=== PATIENT | female | born 1985 | race Caucasian/White ===

== ENCOUNTER 2025-06-13 01:33 | Inpatient (IN) | payer BC, MEDICAID, OTHER ==
[~2025-06-13] VITALS: Ht 162.6 cm; Wt 61.7 kg
[2025-06-13 05:09] LABS: COVID AG,FIA SOURCE NASAL SWAB
[2025-06-13 05:29] LABS: SARS-COV2 (COVID) ANTIGEN,FIA Negative (Negative)
[2025-06-13 05:47] LABS: PLATELET COUNT (AUTO) 215 K/uL (150-450); RED BLOOD CELL COUNT(AUTO) 4.30 MIL/uL (4.00-5.20); RED CELL DISTRIBUTION WIDTH 13.8 % (11.5-14.5); WHITE BLOOD COUNT (AUTO) 8.1 K/uL (4.5-11.0)
[2025-06-13 06:08] LABS: CALCIUM, TOTAL 8.3 mg/dL (8.8-10.5); CREATININE 0.82 mg/dL (0.60-1.30); GLOMERULAR FILTR. RATE CALC > 60 mL/min (>60); GLUCOSE,RANDOM 83 mg/dL (70-110); SODIUM SERUM 138 mmol/L (136-145); UREA NITROGEN, BLOOD 8 mg/dL (7-18)
[2025-06-13 08:43] LABS: APPEARANCE,URINE CLEAR (CLEAR); GLUCOSE, URINE (UA) NEGATIVE (NEGATIVE); LEUKOCYTE ESTERASE ,URINE NEGATIVE (NEGATIVE); NITRATE,URINE NEGATIVE (NEGATIVE); OCCULT BLOOD,URINE SMALL (NEGATIVE); PH,URINE DRUG SCREEN 5.0 (5.0-8.0); SPECIFIC GRAVITIY, URINE 1.028 (1.003-1.030)
[2025-06-13 08:50] LABS: ALCOHOL, URINE DRUG SCREEN NEGATIVE (NEGATIVE); AMPHET/METH SCREEN,URINE NEGATIVE (NEGATIVE); BARBITURATE SCREEN, URINE NEGATIVE (NEGATIVE); CANNABINOID SCREEN,URINE POSITIVE (NEGATIVE); COCAINE SCREEN,URINE NEGATIVE (NEGATIVE); METHADONE SCREEN, URINE NEGATIVE (NEGATIVE)
[2025-06-13] MEDS: ONDANSETRON 4 MG TABLET PO ONE (08:59)
[2025-06-13 09:27] LABS: SQUAMOUS EPITHELIAL CELL,UR Few /LPF (None Seen)
[2025-06-13] MEDS: NICOTINE 21 MG/24 HOUR PATCH TD ONE (16:28)
[2025-06-13] MEDS: ZOLPIDEM TARTRATE 10 MG TABLET PO PRN (21:53)
[2025-06-13 22:57] VITALS: BP 117/79; PULSE 79; RESP 18; TEMP 97.5; O2SAT 98
[2025-06-14 08:35] VITALS: BP 106/80; PULSE 101; RESP 17; TEMP 97.7; O2SAT 99
[2025-06-14] MEDS ORDERED: BACITRACIN 28 GM OINTMENT TP PRN (10:30)
[2025-06-14] MEDS ORDERED: ONDANSETRON 4 MG TABLET PO PRN (10:30)
[2025-06-14] MEDS ORDERED: BENZOCAINE/MENTHOL [CEPACOL] LOZENGE PO PRN (10:30)
[2025-06-14] MEDS ORDERED: LOPERAMIDE HCL 2 MG CAPSULE PO PRN (10:30)
[2025-06-14] MEDS ORDERED: MAG HYDROX/ALUMINUM HYD/SIMETH ES 30 ML SUSPENSION UDCUP PO PRN (10:30)
[2025-06-14] MEDS ORDERED: MAGNESIUM HYDROXIDE SUSPENSION 30 ML UDCUP PO PRN (10:30)
[2025-06-14] MEDS ORDERED: DOCUSATE SODIUM 100 MG CAPSULE PO PRN (10:30)
[2025-06-14] MEDS ORDERED: ALBUTEROL SULFATE HFA 90 MCG/PUFF 8 GM INHALER IH PRN (10:30)
[2025-06-14] MEDS ORDERED: OMEPRAZOLE 20 MG CAPSULE PO PRN (10:30)
[2025-06-14] MEDS ORDERED: PETROLATUM,WHITE 28 GM JELLY TP PRN (10:30)
[2025-06-14 10:52] VITALS: RESP 18; O2SAT 97
[2025-06-14] MEDS: IBUPROFEN 600 MG TABLET PO PRN (10:52)
[2025-06-14] MEDS: NICOTINE POLACRILEX 2 MG LOZENGE PO PRN (10:53)
[2025-06-14 11:52] VITALS: RESP 17
[2025-06-14] MEDS: LORazepam 2 MG/ML VIAL IM ONE (14:20)
[2025-06-14] MEDS: LITHIUM CARBONATE 300 MG CAPSULE PO SCH (17:27)
[2025-06-14] MEDS: DIVALPROEX SODIUM 500 MG DR TABLET PO SCH (17:27)
[2025-06-14 20:26] VITALS: BP 100/77; PULSE 85; RESP 17; TEMP 97.2; O2SAT 100
[2025-06-15 08:34] VITALS: RESP 18
[2025-06-15 10:55] VITALS: BP 125/70; PULSE 100; RESP 17; TEMP 98.6; O2SAT 99
[2025-06-15] MEDS: NICOTINE 14 MG/24 HOUR PATCH TD ONE (14:58)
[2025-06-15 20:12] VITALS: RESP 18; O2SAT 99
[2025-06-15 20:39] VITALS: BP 118/78; PULSE 80; RESP 17; TEMP 97.7; O2SAT 98
[2025-06-15 22:14] VITALS: RESP 18
[2025-06-16] VITALS (8 sets, daily range): BP systolic 106–141; BP diastolic 76–85; PULSE 94–121; RESP 16–17; TEMP 97.9–98.2; O2SAT 96–97
[2025-06-16] MEDS: ACETAMINOPHEN 325 MG TABLET PO PRN (17:02)
[2025-06-16] MEDS: NICOTINE 21 MG/24 HOUR PATCH TD PRN (17:03)
[2025-06-17 09:46] VITALS: BP 90/60; PULSE 114; RESP 18; TEMP 97.4; O2SAT 98
[2025-06-17 10:46] VITALS: RESP 18; O2SAT 98
[2025-06-17] MEDS: NICOTINE POLACRILEX 2 MG LOZENGE PO PRN (11:00)
[2025-06-17 12:23] VITALS: BP 97/70; PULSE 94; RESP 18; TEMP 97.5; O2SAT 98
[2025-06-17 14:38] VITALS: BP 107/74; RESP 18; O2SAT 98
[2025-06-17 19:07] VITALS: RESP 18; O2SAT 98
[2025-06-17 21:06] VITALS: BP 92/68; PULSE 72; RESP 18; TEMP 97.6; O2SAT 95
[2025-06-18] VITALS (7 sets, daily range): BP systolic 101–110; BP diastolic 69–77; PULSE 88–99; RESP 15–18; TEMP 97.7–98; O2SAT 98–99
[2025-06-19 08:46] VITALS: PULSE 84; RESP 18; TEMP 97.9; O2SAT 96
[2025-06-19 09:05] VITALS: BP 101/79; PULSE 84; RESP 17; TEMP 97.9; O2SAT 96
[2025-06-19 09:09] VITALS: RESP 17; O2SAT 96
[2025-06-19 10:09] VITALS: RESP 17; O2SAT 96
[2025-06-19 20:13] VITALS: BP 132/69; PULSE 91; RESP 18; TEMP 97.6; O2SAT 98
[2025-06-20] VITALS (7 sets, daily range): BP systolic 107–122; BP diastolic 66–81; PULSE 67–96; RESP 17–18; TEMP 97.8–98.5; O2SAT 96–99
[2025-06-21 00:12] VITALS: BP 110/69; PULSE 95; RESP 18; TEMP 98.6; O2SAT 98
[2025-06-21 00:26] LABS: GLUCOMETER DEV NAME(LOC) POC.BV; POC SARS-COV2 AG, FIA NEGATIVE (NEGATIVE)
[2025-06-21 08:06] VITALS: BP 128/71; PULSE 72; RESP 17; TEMP 98
[2025-06-21 10:26] VITALS: BP 111/68; PULSE 71; RESP 17; TEMP 98
[2025-06-21 13:42] VITALS: BP 129/73; PULSE 71; RESP 17; TEMP 97.6
[2025-06-21 14:42] VITALS: BP 128/76; PULSE 76; RESP 18; TEMP 98
[2025-06-21 20:06] VITALS: BP 97/68; PULSE 54; RESP 16; TEMP 98; O2SAT 97
[2025-06-22 11:09] VITALS: RESP 17
[2025-06-22] MEDS ORDERED: BUSP5TAB20 PO (12:17)
[2025-06-22] MEDS ORDERED: RISP-32 PO (12:18)
[2025-06-22] MEDS ORDERED: LITH300C3 PO (12:24)
[2025-06-22] MEDS ORDERED: DIVA-112 PO (12:26)
== END 2025-06-22 13:30 | disposition home or self-care (01) | DRG 750 ==
LOC: EMS 01:41 → B3A 18:48 → B2S 06-14 22:02 → 3EI 06-20 23:51
PROVIDERS: ADMIT Psychiatry & Neurology Psychiatry; ATTEND Psychiatry & Neurology Psychiatry
DX: F20.9 Schizophrenia, unspecified (principal); R45.851 Suicidal ideations; F12.90 Cannabis use, unspecified, uncomplicated; F41.9 Anxiety disorder, unspecified; G47.00 Insomnia, unspecified; K59.00 Constipation, unspecified; Z20.822 Contact with and (suspected) exposure to COVID-19; Z87.891 Personal history of nicotine dependence; F32.9 Major depressive disorder, single episode, unspecified
CPT/HCPCS: 80048; 80307; 81001; 85025; 87081; 99285; G0480; J1200; J1630; J2060; Q0162